=== PATIENT | female | born 1995 | race Caucasian/White ===

== ENCOUNTER 2019-05-16 16:29 | Emergency (ER) | payer OTHER, SELFPAY ==
[2019-05-16 16:38] VITALS: BP 137/69; PULSE 80; RESP 20; TEMP 36.7; O2SAT 100
--- NOTE | 2019-05-16 16:40 | DI.RAD.S_ITS ---
PROCEDURE: XR TOE RT MIN 2V INDICATIONS: smashed big toe TECHNIQUE: 3 views of the right great toe were obtained. COMPARISON: None. FINDINGS: Bones: No fractures or dislocations. No suspicious bony lesions. No significant degenerative changes are identified. Soft tissues: No suspicious soft tissue densities. IMPRESSION: No acute osseous abnormality of the right great toe. Dictated by: Gaurang Vargas M.D. on 05/16/2019 at 15:58 Approved by: Gaurang Vargas M.D. on 05/16/2019 at 16:01
[2019-05-16] MEDS: BACITRACIN OINT 0.9 GM PCKT 1 APPLIC TOP (18:13)
--- NOTE | 2019-05-16 18:21 | ED_ITS ---
HPI - Extremity Injury (Lower) <KERLINE Monroe - Last Filed: 05/16/19 19:58> General Chief Complaint: Extremity Injury, Lower Stated Complaint: Smashed Right Foot Yesterday Time Seen by Provider: 05/16/19 17:24 Source: patient Mode of arrival: Ambulatory Limitations: no limitations History of Present Illness HPI Narrative: This is a 23 year old female, nonsmoker, who presents to ED with right great toe discomfort since yesterday 3:00 p.m.. Reports she went to ski yesterday and possibly due to ill-fitting ski boots or repeated smashing the affected foot/toe. Patient reports noticed some swelling and bruise under the right great [place]. Patient denies other injuries or trauma. 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 Related Data Allergies Allergy/AdvReac Type Severity Reaction Status Date / Time No Known Drug Allergies Allergy Verified 05/16/19 16:40 Review of Systems <KERLINE Monroe - Last Filed: 05/16/19 19:58> Review of Systems Narrative: General: Denies fever, chills, fatigue, malaise, sweats. HEENT: Denies sinus pain, ear pain, sore throat, difficulty swallowing, dizziness. Respiratory: Denies dyspnea, cough, wheezing, hemoptysis, sputum. Cardiovascular: Denies chest pain, palpitations, orthopnea, edema. Gastrointestinal: Denies nausea, vomiting, abdominal pain, diarrhea, constipation, melena. : Denies dysuria, frequency, incontinence, hematuria, urinary retention. Musculoskeletal: See HPI Skin: Reports bruise on right great toe. Denies rash, skin lesions, or other. Neurologic: Denies weakness, headache, numbness, change in speech, confusion, seizures, incoordination. Psychiatric: No concerning psychosocial issues. 12-point review of systems is negative except for those stated above. Patient History <KERLINE Monroe - Last Filed: 05/16/19 19:58> Medical History No significant past medical history (Acute) Surgical History No pertinent past surgical history (Acute) Social History Smoking Status: Never smoker Smoking Status: Never smoker Exam <KERLINE Monroe - Last Filed: 05/16/19 19:58> Narrative Exam Narrative: General appearance: well developed, well nourished, in no acute distress. Head: normocephalic, atraumatic, no scalp lesions, non-tender. ENT: Bilateral auditory canals and tympanic membranes clear. Hearing grossly intact. Nose without bleeding, purulent discharge, septal hematoma or deviation. Turbinate without erythema or swelling. Facial sinuses nontender to palpate. Mucous membrane moist, no mucosal lesion. Throat without erythema, tonsillar hypertrophy or exudate. Uvula in midline, airway patent. Neck/Thyroid: neck supple, full range of motion, no visible masses or meningeal signs. No JVD, non-tender without lymphadenopathy. Skin: no suspicious rashes, lesions over other visible areas. Warm and dry and appropriate color for ethnicity. Heart: no clubbing, no cyanosis, no edema. Lungs: Breathing even and unlabored. No stridor. No accessory muscles used. Able to speak in full sentences. Chest: normal shape and expansion. Abdomen: non-obese, non-distended. Neurologic: alert and oriented. Cognitive exam, RELOCATION COUNSELOR and PNS grossly intact on informal exam. Psych: good eye contact, normal affect. Initial Vital Signs Initial Vital Signs: Vital Signs Temperature 98.1 F 05/16/19 16:38 Pulse Rate 80 05/16/19 16:38 Respiratory Rate 20 05/16/19 16:38 Blood Pressure 137/69 05/16/19 16:38 Pulse Oximetry 100 05/16/19 16:38 Extrem Right lower extremity: foot Details: tenderness Location: of the dorsal foot and of the great toe, toes with normal ROM, no edema, ecchymosis (Inferior to Great toenail) and vascular exam Details: dorsalis pedis pulse present; no unusual warmth, no abrasion, no laceration, no crepitus and no puncture wound <Reg Cunningham DO - Last Filed: 05/17/19 06:55> Initial Vital Signs Initial Vital Signs: Vital Signs Temperature 98.1 F 05/16/19 16:38 Pulse Rate 80 02/10/20 16:38 Respiratory Rate 20 05/16/19 16:38 Blood Pressure 137/69 05/16/19 16:38 Pulse Oximetry 100 05/16/19 16:38 Scores <Matti NelsonKERLINE Shah - Last Filed: 05/16/19 19:58> GCS Surinder coma scale eye opening: Spontaneous [place] coma scale verbal response: Orientated [place] coma scale motor response: Obey commands Surinder coma scale total score: 15 Course <Matti KERLINE Ledezma - Last Filed: 05/16/19 19:58> Orders Ordered: Discontinued Medications Bacitracin (Bacitracin) 1 applic TOP NOW ONE Stop: 05/16/19 17:49 Last Admin: 05/16/19 18:13 Dose: 1 applic Documented by: STANLEY Vital Signs Vital signs: Vital Signs - 8 hr 05/16/19 16:38 Temperature 98.1 F Pulse Rate 80 Respiratory Rate 20 Blood Pressure 137/69 Pulse Oximetry 100 <Reg Cunningham DO - Last Filed: 05/17/19 06:55> Orders Ordered: Discontinued Medications Bacitracin (Bacitracin) 1 applic TOP NOW ONE Stop: 05/16/19 17:49 Last Admin: 05/16/19 18:13 Dose: 1 applic Documented by: STANLEY Vital Signs Vital signs: Vital Signs - 8 hr 05/16/19 16:38 Temperature 98.1 F Pulse Rate 80 Respiratory Rate 20 Blood Pressure 137/69 Pulse Oximetry 100 MDM - Extremity Injury (Lower) <Matti KERLINE Ledezma - Last Filed: 05/16/19 19:58> Differential Diagnosis Differential diagnosis: Likely other (Toe sprain/strain, toe nail hematoma, Toe fracture) Medical Records Attestation: I reviewed the patient's medical records. Imaging Data XR-Toe RT: Radiologist's Impression: [address] [address] XRay Report Signed Patient: Umang Orellana LMR#: [id number] : 1995Acct:[id number] Age/Sex: 23 / FDate of Service: 05/16/19 Loc: ED Accession Number: [id number] Procedure: XR toe RT min 2V Ordering Provider: Lanker,Reg D.O. PROCEDURE: XR TOE RT MIN 2V INDICATIONS: smashed big toe TECHNIQUE: 3 views of the right great toe were obtained. COMPARISON: None. FINDINGS: Bones: No fractures or dislocations. No suspicious bony lesions. No significant degenerative changes are identified. Soft tissues: No suspicious soft tissue densities. IMPRESSION: No acute osseous abnormality of the right great toe. Dictated by: Gaurang Vargas M.D. on 05/16/2019 at 15:58 Approved by: Gaurang Vargas M.D. on 05/16/2019 at 16:01 [facility] Narrative Medical decision making narrative: Right great toe trephination procedure done with high temperature cordless cautery and was able to expressed serosanguineous fluid from affected toe. Patient reports relief of pressure discomfort after the procedure. Wound care was done on affected toe. X-ray test on affected toe does not show acute findings such as fracture or dislocation. Patient provided with tennis shoe chit for work. Advised to use ice pack for next 24-48 hours and to take [id number] Tylenol and or Motrin as needed for discomfort. Return precautions discussed with the patient and patient verbalized understanding and agrees with the treatment plan. Discharge Plan Departure Patient Disposition: Home Clinical Impression: Contusion of toe or toenail Discharge Date/Time: 05/16/19 18:49 Instructions: DI for Contusion Activity Restrictions/Additional Instructions: You have been diagnosed with [right great toe contusion and bruise including under the toenail. Trephination of right great toenail completed and drained blood and liquid from affected site. There was no fracture or dislocation was identified per x-ray test today on your toe.]. What to do: *Take your medications as directed. You can use [id number] antibiotic ointment over the trephination site. Keep the wound clean and dry. Please wear 10 issues for next 3-4 days for discomfort. You can use ice pack for next 24-48 hours and elevated as much as you can. You can take [id number] Tylenol and or Motrin as needed for discomfort. Tylenol 650 mg 4 times a day as needed. Ibuprofen 400 mg 600 mg 3 to 4 times a day as needed with food. *Follow up with your primary care provider in 2-3 days, call for an appointment. Let them know you were seen in the ED and that we asked you to be seen in follow up. *Return to ED if you have any new, worsening, or concerning symptoms, such as [fever, severe pain, unable to move her toes, chest pain, breathing difficulty, or any acute concerns]. Referrals: [facility] [Outside] Stand Alone Forms: Work Release Note <Reg Cunningham, DO - Last Filed: 05/17/19 06:55> Sign Out Provider Sign Out Attestation: Dr Cunningham Co-Sign Statement: I was available for consultation during this patient's emergency department visit. This chart is signed by myself for administrative purposes only. I did not have direct contact with this patient during this visit. They were seen independently by the APC.
== END 2019-05-16 18:49 | disposition home or self-care (01) ==
PROVIDERS: Emergency Provider Nurse Practitioner Family
DX: S90.111A Contusion of right great toe without damage to nail, initial encounter (principal); W21.39XA Struck by other sports foot wear, initial encounter
CPT/HCPCS: 11740; 73660; 99281; 99283

== ENCOUNTER 2021-12-02 19:17 | Day surgery (SDC) | payer OTHER, SELFPAY ==
[2021-12-02 20:04] VITALS: BP 121/73; PULSE 103; RESP 17; TEMP 37.1; O2SAT 99; BMI 22.0
[2021-12-02 20:32] LABS: Add Manual Diff / Slide Review NO; Basophils Absolute Auto 0 /uL (0-100); Basophils Percent Auto 0.1 % (0-2); Eosinophils Absolute Auto 0 /uL (0-450); Eosinophils Percent Auto 0.1 % (2-4); Hemoglobin 13.5 g/dL (12.0-16.0); Lymphocytes Absolute Auto 600 /uL (1100-4500); Lymphocytes Percent Auto 3.3 % (25-40); Mean Corpuscular HGB Conc 34.5 % (30-36); Mean Corpuscular Hemoglobin 32.2 PG (26-34); Mean Corpuscular Volume 93.3 fL (80-100); Monocytes Absolute Auto 1500 /uL (0-900); Monocytes Percent Auto 8.6 % (3-14); Neutrophils Absolute Auto 15600 /uL (1500-7000); Neutrophils Percent Auto 87.9 % (50-75); Platelet Count 261 X10^3/uL (150-400); Red Blood Cell Count 4.18 X10^6/uL (4.0-5.2); Red Cell Distribution Width 12.3 % (11.6-14.8); White Blood Cell Count 17.8 X10^3/uL (4.5-11.0)
--- NOTE | 2021-12-02 20:37 | DI.US.S_ITS ---
PROCEDURE: US ABDOMEN LIMITED INDICATIONS: RLQ pain, ? appy TECHNIQUE: Real-time focused scanning was performed of the abdomen, with image documentation. COMPARISON: None. FINDINGS: There is a tubular structure identified in the right lower quadrant measuring up to 0.6 cm in diameter. No definite blind end is demonstrated. There is increased vascularity along the wall of the structure on color Doppler interrogation. A small amount of adjacent free fluid is demonstrated in the right lower quadrant. IMPRESSION: 1. Tubular structure in the right lower quadrant may represent the appendix but is not definitive given incomplete visualization of the blind end. 2. Increased vascularity along the wall of the structure on color Doppler compatible with hyperemia. Although the diameter of the structure is within normal size limits for and appendix, increased vascularity may reflect an inflammatory process. 3. Small amount of adjacent free fluid in the right lower quadrant. The constellation of findings is nonspecific but acute appendicitis cannot be excluded. If there is persistent clinical suspicion, recommend further evaluation with CT. Dictated by: Bryson Schwartz M.D. on 12/02/2021 at 23:06 Approved by: Bryson Schwartz M.D. on 12/02/2021 at 23:11
[2021-12-02 20:42] LABS: Alanine Aminotransferase 11 IU/L (<35); Albumin 5.2 g/dL (3.5-5.0); Albumin Globulin Ratio 1.4 (1.0-2.8); Alkaline Phosphatase 59 U/L (38-126); Aspartate Aminotransferase 20 IU/L (14-36); BUN Creatinine Ratio 14.1 (6-22); Blood Urea Nitrogen 14 mg/dL (7-17); Calcium 9.4 mg/dL (8.4-10.2); Carbon Dioxide 26 mmol/L (22-32); Chloride 100 mmol/L (98-107); Estimated Glomerular Filt Rate > 60 mL/min (>60); Globulin 3.7 g/dL (1.7-4.1); Glucose 102 mg/dL (70-100); HEMOLYSIS < 15 (0-50); Lipase 27 U/L (23-300); Potassium 4.3 mmol/L (3.4-5.1); Sodium 138 mmol/L (137-145); Total Protein 8.9 g/dL (6.3-8.2)
[2021-12-02 20:54] LABS: RBC Urine None Seen (0-5/HPF); Squamous Epithelial Cell Urine 1-5 /HPF (0-5/HPF); WBC Urine 1-5/HPF (0-5/HPF)
[2021-12-02 20:55] LABS: Amorphous Sediment Urine 1+; Bacteria Urine Few (2-10); Culture Indicated Urine Specimen Cultured; Mucus Urine 1+ (Negative)
--- NOTE | 2021-12-02 21:41 | ED_ITS ---
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 today initially periumbilical now radiating to the right lower quadrant associated with significant nausea approximately 4 hours of vomiting initially. Nausea is somewhat improving at this point. She denies flank plain, dysuria, vaginal discharge, . She is having no chest pain, palpitations, dyspnea. She notes that at the age of 16 she had a similar presentation, was treated medically for acute appendicitis and has not had problems until today. Last meal was 11 30 this morning. Related Data Home Medications Medication Instructions Recorded Confirmed No Known Home Medications 12/02/21 12/02/21 Allergies Allergy/AdvReac Type Severity Reaction Status Date / Time No Known Drug Allergies Allergy Verified 05/16/19 16:40 Review of Systems Review of Systems Narrative: Remainder of complete review of systems is otherwise unremarkable except for that included in the HPI. Patient History Medical History (Updated 12/02/21 @ 21:53 by Jodie Elam MD) No significant past medical history Surgical History No pertinent past surgical history Social History household members: friend(s) Smoking Status: Never smoker alcohol intake: never Smoking Status: Never smoker alcohol intake frequency: 0-2 drinks per day Substance Use Type: does not use Exam Initial Vital Signs Initial Vital Signs: Vital Signs Temperature 98.7 F 12/02/21 20:04 Pulse Rate 103 H 12/02/21 20:04 Respiratory Rate 17 12/02/21 20:04 Blood Pressure 121/73 12/02/21 20:04 Pulse Oximetry 99 12/02/21 20:04 Oxygen Delivery Method 12/02/21 20:04 General: Healthy appearing, in no acute distress. Able to give a complete and coherent history. Well-nourished well-developed HEENT: Moist mucous membranes, normal sclera with reactive pupils, Neck: supple Respiratory: Lungs are clear to auscultation, no wheezing no rales no rhonchi. Full and symmetrical air movement Cardiac: Regular rate and rhythm no murmurs no bruits Abdomen: Soft, diffuse tenderness with significant right lower quadrant tenderness with developing peritoneal signs, Neurologic: Grossly neurologically intact with no obvious asymmetries or abnormalities Extremities: No trauma, well perfused Psych: Cooperative, appropriate insight and affect Course Orders Ordered: Hydromorphone HCl (Hydromorphone 0.5 Mg Inj) 0.5 mg IV Q15MIN PRN PRN Reason: Pain, Last Admin: 12/03/21 05:52 Dose: 0.5 mg Documented By: Admin: 12/03/21 02:51 Dose: 0.5 mg Documented By: TAPAN Hydromorphone HCl (Hydromorphone 0.5 Mg Inj) 0.5 mg IV Q15MIN PRN PRN Reason: Pain, Lactated Ringer's (Lactated Ringers) 1,000 mls @ 125 mls/hr IV CONT [facility] Last Admin: 12/02/21 22:52 Dose: 125 mls/hr Documented By: PEDRO Piperacillin Sod/Tazobactam (Sod 3.375 gm/ Sodium Chloride) 100 mls @ 25 mls/hr IV Q8H [facility] Last Admin: 12/03/21 02:50 Dose: 25 mls/hr Documented By: TAPAN Discontinued Medications Sodium Chloride (Normal Saline 0.9%) 1,000 mls @ 1,000 mls/hr IV BOLUS ONE Stop: 12/02/21 21:36 Last Infusion: 12/02/21 22:30 Dose: 0 mls/hr Documented By: Admin: 12/02/21 21:53 Dose: 1,000 mls/hr Documented By: JOSE DAVID Piperacillin Sod/Tazobactam (Sod 4.5 gm/ Sodium Chloride) 100 mls @ 200 mls/hr IV NOW ONE Stop: 12/02/21 21:54 Last Infusion: 12/02/21 22:30 Dose: 0 mls/hr Documented By: Admin: 12/02/21 22:15 Dose: 200 mls/hr Documented By: JOSE DAVID Piperacillin Sod/Tazobactam (Sod 3.375 gm/ Sodium Chloride) 100 mls @ 25 mls/hr IV Q8H [facility] Last Admin: 12/02/21 22:04 Dose: Not Given Documented By: AT Ondansetron HCl (Ondansetron 4 Mg/2 Ml Inj) 4 mg IV NOW ONE Stop: 12/02/21 20:38 Last Admin: 12/02/21 21:53 Dose: 4 mg Documented By: SB Vital Signs Vital signs: Vital Signs - 8 hr 12/02/21 20:04 Temperature 98.7 F Pulse Rate 103 H Respiratory Rate 17 Blood Pressure 121/73 Pulse Oximetry 99 Oxygen Delivery Method Room Air Medical Decision Making Lab Data Result diagrams: 12/02/21 20:15 12/02/21 20:15 Labs: Lab Results 12/02/21 12/02/21 12/02/21 Range/Units 20:15 20:15 20:32 WBC 17.8 H (4.5-11.0) X10^3/uL RBC 4.18 (4.0-5.2) X10^6/uL Hgb 13.5 (12.0-16.0) g/dL Hct 39.0 (36-46) % MCV 93.3 (80-100) fL MCH 32.2 (26-34) PG MCHC 34.5 (30-36) % RDW 12.3 (11.6-14.8) % Plt Count 261 (150-400) X10^3/uL Neut % (Auto) 87.9 H (50-75) % Lymph % (Auto) 3.3 L (25-40) % [place] % (Auto) 8.6 (3-14) % Eos % (Auto) 0.1 L (2-4) % Baso % (Auto) 0.1 (0-2) % Neut # (Auto) 27759 H (6000-8544) /uL Lymph # (Auto) 600 L (9773-4155) /uL [place] # (Auto) 1500 H (0-900) /uL Eos # (Auto) 0 (0-450) /uL Baso # (Auto) 0 (0-100) /uL Sodium 138 (137-145) mmol/L Potassium 4.3 (3.4-5.1) mmol/L Chloride 100 (98-107) mmol/L Carbon Dioxide 26 (22-32) mmol/L BUN 14 (7-17) mg/dL Creatinine 0.99 (0.52-1.04) mg/dL Estimated GFR > 60 (>60) mL/min BUN/Creatinine Ratio 14.1 (6-22) Glucose 102 H (70-100) mg/dL Calcium 9.4 (8.4-10.2) mg/dL Total Bilirubin 1.0 (0.2-1.3) mg/dL AST 20 (14-36) IU/L ALT 11 (<35) IU/L Alkaline Phosphatase 59 (38-126) U/L Total Protein 8.9 H (6.3-8.2) g/dL Albumin 5.2 H (3.5-5.0) g/dL Globulin 3.7 (1.7-4.1) g/dL Albumin/Globulin Ratio 1.4 (1.0-2.8) Lipase 27 (23-300) U/L Urine RBC None seen (0-5/HPF) Urine WBC 1-5/hpf (0-5/HPF) Ur Squamous Epith Cells 1-5 /hpf (0-5/HPF) Amorphous Sediment 1+ Urine Bacteria Few (2-10) H (None) Urine Mucus 1+ H (Negative) Ur Culture Indicated? Specimen cultured Point of Care Testing Test Results Negative Urine Dip Bedside Urine Glucose Negative Bedside Urine Bilirubin - Negative Bedside Urine Ketone +++ 80 Urine Specific [place] 1.030 Bedside Urine Occult Blood - Negative Bedside Urine pH 6.0 Bedside Urine Protein +/- 15 Bedside Urine Urobilinogen - Negative Bedside Urine Nitrite - Negative Bedside Urine Leukocytes - Negative Esterase Point of care testing: Point of Care Testing Test Results Negative Urine Dip Bedside Urine Glucose Negative Bedside Urine Bilirubin - Negative Bedside Urine Ketone +++ 80 Urine Specific [place] 1.030 Bedside Urine Occult Blood - Negative Bedside Urine pH 6.0 Bedside Urine Protein +/- 15 Bedside Urine Urobilinogen - Negative Bedside Urine Nitrite - Negative Bedside Urine Leukocytes - Negative Esterase Imaging Data US - abdomen: My Impression: Preliminary report indicates acute appendicitis MDM Narrative Medical decision making narrative: 26-year-old woman with exam, history, labs and ultrasound all consistent with developing acute appendicitis. Care is reviewed with Dr. Kern, patient is excepted. Will begin maintenance fluids, pain control, Zosyn and she will be admitted with anticipation of surgical intervention tomorrow. All of these findings and plans reviewed with patient, questions are answered and she is safe for transfer to the floor Discharge Plan Departure Patient Disposition: Admitted as Observation Clinical Impression: Acute appendicitis Admit Date/Time: 12/02/21 21:55 Admit Provider: Saul Kern
[2021-12-02 21:49] VITALS: BP 147/74; PULSE 103; O2SAT 100
[2021-12-02] MEDS: ONDANSETRON 4 MG/2 ML INJ IV (21:53)
[2021-12-02] MEDS: SODIUM CHLORIDE 0.9% 1,000 ML 1000 ML IV (21:53)
[2021-12-02 22:00] VITALS: BP 117/57; PULSE 97; O2SAT 100
[2021-12-02] MEDS: PIPERACILLIN/TAZO 4.5 GM in SODIUM CHLORIDE 0.9% 100 ML IV (22:15)
[2021-12-02 22:16] VITALS: BMI 22.0
[2021-12-02 22:38] LABS: COVID19 -Nasal RAPID Negative (Negative)
[2021-12-02 22:40] VITALS: BP 113/72; PULSE 93; RESP 19; TEMP 38; O2SAT 98
[2021-12-02] MEDS: LACTATED RINGERS 1,000 ML 125 ML IV (22:52)
[2021-12-02 23:40] VITALS: TEMP 37.5
[2021-12-03] VITALS (13 sets, daily range): BP systolic 97–116; BP diastolic 53–80; PULSE 65–96; RESP 16–27; TEMP 36.4–37.3; O2SAT 98–100; BMI 22.4
--- NOTE | 2021-12-03 | PATH_ITS ---
[facility] Accession Number: [id number] . 01 Material submitted: . appendix - APPENDIX . 01 Clinical history: . RIGHT LOWER PAIN THROWING UP . 01 Diagnosis: Appendix, Appendectomy: Acute appendicitis and serositis. MRV 12/05/2021 1235 Local . 01 Electronically signed: . Cari Nunez MD, Pathologist NPI- [id number] . 01 Gross description: . Received in formalin labeled with the patient's name and appendix consists of a vermiform appendix measuring 4.4 cm in length and 0.6 cm in diameter. The serosa is miles and smooth with a small amount of attached mesoappendix extending out to 1.5 cm. A small amount of adherent white material consistent with exudate is located on the serosa. No perforations are identified. The margin is received closed with a purple suture. The margin is inked blue. Serial sectioning reveals a patent pinpoint lumen with a small amount of miles friable material and miles leonardo that average 0.2 cm thick. No lesions are identified. Pet Supplies Salesperson sections to include one-half of the bisected distal tip, surgical margin, and route sales representative cross-sections are submitted in cassette A1. ([id number]) /MRV 12/04/2021 1316 Local . 01 Pathologist provided ICD-10: K35.80 . 01 CPT . 533797 Specimen Comment: A courtesy copy of this report has been sent to [phone] Performed at: 01 LabPending sale to [facility] [address] [place] [address] [address] [facility], [place], [place] [id number] MD Bryson Handy MD Phone: [phone]
[2021-12-03] MEDS: PIPERACILLIN/TAZO 3.375 GM in SODIUM CHLORIDE 0.9% 100 ML IV ×2 (02:50→10:21)
[2021-12-03] MEDS: HYDROMORPHONE 0.5 MG INJ IV ×2 (02:51→05:52)
[2021-12-03] MEDS: LACTATED RINGERS 1,000 ML 125 ML IV (07:39)
--- NOTE | 2021-12-03 10:06 | PC.NURSE ---
09:40 Pt off unit to operating room.
--- NOTE | 2021-12-03 10:06 | PM.HP.1 ---
History of Present Illness History of Present Illness Date Patient Seen: 12/03/21 Time Patient Seen: 10:06 Chief complaint: Right Lower Pian throwing up Narrative: Umang is a 26-year-old woman who presents with several hours of right lower quadrant pain. An ultrasound was performed in the ER which showed a distended tubular structure in the right lower quadrant suggestive of appendicitis. She reports that about 10 years ago she was diagnosed with borderline appendicitis and treated with antibiotics. She feels that this is similar pain to that event. Patient History Medical History (Updated 12/02/21 @ 21:53 by Jodie Elam MD) No significant past medical history Surgical History No pertinent past surgical history Family & Social History Social History: household members friend(s) Prior Living Arrangements House Safety & Behavioral: Feels Safe in Current Yes Environment Been Physically Hurt or No Threatened By a Person Tobacco & Substance use: Smoking Status Never smoker alcohol intake never alcohol intake frequency 0-2 drinks per day Substance Use Type does not use Meds Home Medications and Allergies Home Medications Medication Instructions Recorded Confirmed Type No Known Home Medications 12/02/21 12/02/21 History Allergies Allergy/AdvReac Type Severity Reaction Status Date / Time No Known Drug Allergies Allergy Verified 05/16/19 16:40 Exam Vital Signs (past 8 hours): - 12/03/21 05:27 12/03/21 07:48 Temperature 98.3 F 98.9 F Pulse Rate 77 70 Respiratory Rate 18 18 Blood Pressure 105/53 L 105/62 Pulse Oximetry 98 99 Oxygen Flow Rate 0 Oxygen Delivery Method Room Air Oxygen Flow Rate 0 Narrative Exam Narrative: Tender to palpation at McBurney's point No peritoneal findings Objective Labs Result Diagrams: 12/02/21 20:15 12/02/21 20:15 Labs: Laboratory Results - last 24 hr 12/02/21 12/02/21 12/02/21 20:15 20:15 20:32 WBC 17.8 H RBC 4.18 Hgb 13.5 Hct 39.0 MCV 93.3 MCH 32.2 MCHC 34.5 RDW 12.3 Plt Count 261 Neut % (Auto) 87.9 H Lymph % (Auto) 3.3 L [place] % (Auto) 8.6 Eos % (Auto) 0.1 L Baso % (Auto) 0.1 Neut # (Auto) 84695 H Lymph # (Auto) 600 L [place] # (Auto) 1500 H Eos # (Auto) 0 Baso # (Auto) 0 Sodium 138 Potassium 4.3 Chloride 100 Carbon Dioxide 26 BUN 14 Creatinine 0.99 Estimated GFR > 60 BUN/Creatinine Ratio 14.1 Glucose 102 H Calcium 9.4 Total Bilirubin 1.0 AST 20 ALT 11 Alkaline Phosphatase 59 Total Protein 8.9 H Albumin 5.2 H Globulin 3.7 Albumin/Globulin Ratio 1.4 Lipase 27 Urine RBC None seen Urine WBC 1-5/hpf Ur Squamous Epith Cells 1-5 /hpf Amorphous Sediment 1+ Urine Bacteria Few (2-10) H Urine Mucus 1+ H Ur Culture Indicated? Specimen cultured SARS-CoV-2 (PCR) 12/02/21 22:19 WBC RBC Hgb Hct MCV MCH MCHC RDW Plt Count Neut % (Auto) Lymph % (Auto) [place] % (Auto) Eos % (Auto) Baso % (Auto) Neut # (Auto) Lymph # (Auto) [place] # (Auto) Eos # (Auto) Baso # (Auto) Sodium Potassium Chloride Carbon Dioxide BUN Creatinine Estimated GFR BUN/Creatinine Ratio Glucose Calcium Total Bilirubin AST ALT Alkaline Phosphatase Total Protein Albumin Globulin Albumin/Globulin Ratio Lipase Urine RBC Urine WBC Ur Squamous Epith Cells Amorphous Sediment Urine Bacteria Urine Mucus Ur Culture Indicated? SARS-CoV-2 (PCR) Negative Assessment & Plan Assessment and plan (1) Acute appendicitis: Status: Acute Plan Umang is a 26-year-old woman with acute appendicitis. We discussed the risks and benefits of laparoscopic appendectomy and she would like to proceed. She has been given Zosyn. Time Spent With Patient Critical Care time: I spent a total of [] minutes of critical care time on this patient's care today; this time is exclusive of procedural time. Quality VTE Deep Vein Thrombosis/Pulmonary Embolism Present on Admission: No
[2021-12-03 10:11] LABS: Pregnancy Test Urine Negative (Negative)
[2021-12-03] MEDS: LACTATED RINGERS 1,000 ML 42 ML IV ×2 (10:26→11:54)
[2021-12-03] MEDS: ACETAMINOPHEN IV 1,000 MG/100 ML VIAL 400 MG IV (10:50)
--- NOTE | 2021-12-03 10:50 | CM.DANOTE ---
NATOP Assessment: Payor: Philip Mancuso PCP: [facility] Pt is a 26 y.o. F who presented to the ER with several hours of right abdominal pain. Pt had an ultrasound and showed possible appendicitis. Pt given Zosyn in the ED. Pt admitted for possible appendectomy. Pt is NPO. DCP met with pt this morning to discuss discharge needs. Pt sitting up in bed. DCP introduced herself and role. Pt is independent at baseline and works at the [employer]. Pt lives in [place]. Pt has no discharge needs. Pt to have appendectomy later today. Anticipate discharge tomorrow. White board updated. P: Pt to have appendectomy today. Once pt medically stable for discharge. Pt to discharge home via POV. Michelle Judge RN/NANCY Discharge Planning/Care Management CM Discharge Assessment Start: 12/03/21 10:19 Freq: Status: Active Protocol: Document 12/03/21 10:19 [email or web address] (Rec: 12/03/21 10:23 [id number]) Discharge Planning Assessment Assigned Telegraph And Teletype Operator Michelle Judge RN/NANCY Advance Directives? No History Provided By Patient Prior Living Arrangements House Household Members none Type of transporation used prior to Drives own vehicle admit Independent with ADL's Yes Is patient alert and oriented? Yes Caregiver for Another No Discharge Plan Home Referrals Initiated None needed Whiteboard Updated in Patient Room with Yes name and ext. # of Telegraph And Teletype Operator Comment Instructed to call Review Status In Process Please Provide Date Initial DC 12/03/21 Assessment Was Performed Next Review Type Continued Stay Review
--- NOTE | 2021-12-03 10:51 | SUR.OPER ---
Supine on padded OR bed, head on pillow, safety belt at thigh, left arm padded and tucked at side. Right arm secured on padded arm board <90 degrees abduction. Legs uncrossed. Padded footboard in place. Tape over blanket to secure lower legs.
[2021-12-03] MEDS: BUPIVACAINE 0.5% W/ EPI (PF) 30 ML VIAL INJ (11:25)
--- NOTE | 2021-12-03 11:40 | PM.OP.1 ---
Operative Date/Time/Diagnoses Date of procedure: 12/03/21 Time of procedure: 11:40 Pre-op diagnosis: Acute appendicitis Post-op diagnosis: same Procedure & Clinicians Procedure: Laparoscopic appendectomy Same procedure as scheduled: Yes Surgeon: Saul Kern Operative Notes Procedure in detail: Procedure in detail: The patient was on IV antibiotics. The patient was brought to the operating room, placed on the table in the supine position and general endotracheal anesthesia was induced. A time-out was performed. The abdomen was prepped and draped in the usual fashion. After injection of 5 mL of local anesthetic a 1 cm infraumbilical incision was created with a 15 blade scalpel. The umbilical stalk was grasped with a Jin clamp to elevate the abdominal wall. The infraumbilical midline fascia was cleared over 1 cm and the fascia was scored with cautery. The peritoneum was grasped with a clamp and elevated above the fascia and cut with Metzenbaum scissors. The [place] port was placed and the abdomen was insufflated to 15 mmHg. The camera was inserted and there was no evidence of any injury from the entry. Next, 5 mm ports were placed in the suprapubic and left lower quadrant positions under direct vision. The patient was placed in Trendelenburg with the right-side elevated. The appendix was noted anterior to the cecum. There were adhesions involving the majority of the appendix consistent with the patient's description of an episode of appendicitis 10 years ago treated with antibiotics. Appendix was dilated but there was no evidence of perforation or gangrene. The adhesions were taken down in layers using the LigaSure and the mesoappendix was divided with the LigaSure to the base. Two PDS Endoloops were placed at the base and a 3rd endoloop was placed about a cm distally and the appendix was divided sharply. The specimen was placed in a Endo-Catch bag. A small amount of fluid with suction from the base of the appendix and pelvis. The table was flattened and the terminal ileum and omentum were allowed to slide in over the appendiceal stump. Finally, the 5 mm ports were removed under direct vision. The pneumoperitoneum was released and the [place] port was removed followed by the Endo-Catch bag. Additional local was injected into the fascia and the infraumbilical incision was closed with 2 interrupted 2-0 Vicryl sutures. The skin incisions were closed with 4 Monocryl. Steri-Strips were applied followed by Band-Aids. EBL: 5 mL Specimen: Appendix Post-operative Condition: stable Disposition: PACU
[2021-12-03] MEDS: ONDANSETRON 4 MG/2 ML INJ IV (11:57)
[2021-12-03] MEDS: OXYCODONE IR 5 MG TABLET PO (11:58)
--- NOTE | 2021-12-03 12:19 | PC.NURSE ---
12:15 Pt back on the acute care unit from OR. Pt denies pain and denies nausea. Vital signs b/p 108/68, hr 73, temp. 98.5 F, O2 100% RA, RR 16
[2021-12-03] MEDS: IBUPROFEN 600 MG TABLET PO (21:09)
[2021-12-04 03:40] VITALS: BP 104/59; PULSE 62; RESP 19; TEMP 36.9; O2SAT 100
[2021-12-04 07:53] VITALS: BP 109/59; PULSE 69; RESP 17; TEMP 37.1; O2SAT 100
--- NOTE | 2021-12-04 09:30 | PM.DS.1 ---
History of Present Illness History of Present Illness Chief complaint: Right Lower Pian throwing up Narrative: Umang is a 26-year-old woman who presents with several hours of right lower quadrant pain. An ultrasound was performed in the ER which showed a distended tubular structure in the right lower quadrant suggestive of appendicitis. She reports that about 10 years ago she was diagnosed with borderline appendicitis and treated with antibiotics. She feels that this is similar pain to that event. Discharge Providers Provider Date of admission: 12/02/21 21:55 Discharge Date: 12/04/21 Discharge provider: Saul Kern MD Summary Hospital Course Discharge Diagnosis: Acute appendicitis Hospital Course: The patient underwent a laparoscopic appendectomy for acute appendicitis and recovered overnight on the floor. She was discharged home postop day 1. Exam Vital Signs (past 8 hours): - 12/04/21 03:40 12/04/21 07:53 Temperature 98.5 F 98.7 F Pulse Rate 62 69 Respiratory Rate 19 17 Blood Pressure 104/59 L 109/59 L Pulse Oximetry 100 100 Oxygen Flow Rate 0 Oxygen Delivery Method Room Air Oxygen Flow Rate 0 Objective Labs Result Diagrams: 12/02/21 20:15 12/02/21 20:15 Labs: Laboratory Results - last 24 hr 12/03/21 10:03 Urine Test Negative [facility] Medical History (Updated 12/02/21 @ 21:53 by Jodie Elam MD) No significant past medical history Surgical History No pertinent past surgical history Social History household members: none Smoking Status: Never smoker alcohol intake: never Discharge Plan Discharge Plan Patient Disposition: Home Provider Discharge Comment: Okay to remove the outer dressing and shower after 24 hours. Leave the Steri-Strips on until they start to peel off in 1-2 weeks. Take ibuprofen or Tylenol for pain. Discharge orders & Medications Prescriptions: No Action No Known Home Medications Quality VTE Deep Vein Thrombosis/Pulmonary Embolism Present on Admission: No
--- NOTE | 2021-12-04 10:13 | PC.NURSE ---
Pt received lying in bed A&OX3, denies pain. Abdomen incision sites C/D/I, +BS. She tolerates breakfast well. MD at bedside evaluating patient and clears her for discharge home this a.m. She verbalizes understanding of diet,medications, site care, s/sx of infection, and activity restrictions. She is escorted to private vehicle with friend for discharge home at 945 this a.m.
== END 2021-12-04 09:45 | disposition home or self-care (01) ==
LOC: ED 21:53 → AC 12-03 06:28 → OR 12-05 11:16
PROVIDERS: Emergency Provider Emergency Medicine; Visit Provider Surgery
PROC: 0DTJ4ZZ Resection of Appendix, Percutaneous Endoscopic Approach (ICD-10-PCS; CPT 44970; principal; 2021-12-03 11:00)
DX: K35.33 Acute appendicitis with perforation, localized peritonitis, and gangrene, with abscess (principal); Z20.822 Contact with and (suspected) exposure to COVID-19
CPT/HCPCS: 44970; 36415; 76705; 80053; 81003; 81015; 81025; 83690; 85025; 87086; 87635; 99219; 99284; C9803; J0131; J0330; J1100; J1170; J1885; J2250; J2405; J2543; J2704; J3010